=== PATIENT | male | born 1995 | race American Indian/Alaskan Native ===

== ENCOUNTER 2016-03-08 11:00 | Emergency (ER) | payer BC ==
[2016-03-08 11:06] VITALS: BP 110/64
[2016-03-08] MEDS ORDERED: FUL-GLO OP ONE (11:17)
[2016-03-08] MEDS ORDERED: BSS ONE (11:18)
[2016-03-08] MEDS ORDERED: TETCAINE OU ONE (11:25)
[2016-03-08] MEDS ORDERED: NORCO 5/325 PO ONE (11:26)
--- NOTE | 2016-03-08 11:46 | Emergency Department Report ---
ED Eye Problem HPI - General Chief complaint: Eye Problems Stated complaint: EYES BURNING Time Seen by Provider: 03/08/16 11:25 Source: patient Mode of arrival: Ambulatory Limitations: No Limitations - History of Present Illness Initial comments: 20-year-old male comes in with a complaint of both eyes are in severe pain and unable to open. Patient reports that last night he fell sleep with his contacts which he usually does not do woke up this morning and eyes are excruciating pain. She denies any nausea vomiting "just pain" - Related Data Previous Rx's Medication Instructions Recorded Last Taken Type Azithromycin [Zithromax Z-YFN] 250 mg PO DAILY #6 tab 01/01/15 Unknown Rx HYDROcodone/APAP 5-325 [[place] 1 each PO Q6HR PRN #20 tablet 01/01/15 Unknown Rx 5/325] Acetaminophen/Codeine [Tylenol #3] 1 tab PO Q6H PRN #20 tab 03/08/16 Unknown Rx Ofloxacin 0.3% [Floxin Otic] 2 drops OU QID #1 bottle 03/08/16 Unknown Rx Allergies Allergy/AdvReac Type Severity Reaction Status Date / Time No Known Allergies Allergy Unverified 12/31/14 21:00 ED Review of Systems ROS: Stated complaint: EYES BURNING Other details as noted in HPI ED Past Medical Hx - Past Medical History Previous Medical History?: No - Surgical History Past Surgical History?: No - Social History Smoking Status: Current Every Day Smoker Substance Use Type: Alcohol - Medications Home Medications: Home Medications Medication Instructions Recorded Confirmed Last Taken Type Azithromycin [Zithromax Z-YFN] 250 mg PO DAILY #6 tab 01/01/15 Unknown Rx HYDROcodone/APAP 5-325 [[place] 1 each PO Q6HR PRN #20 tablet 01/01/15 Unknown Rx 5/325] Acetaminophen/Codeine [Tylenol #3] 1 tab PO Q6H PRN #20 tab 03/08/16 Unknown Rx Ofloxacin 0.3% [Floxin Otic] 2 drops OU QID #1 bottle 03/08/16 Unknown Rx ED Physical Exam - General Limitations: No Limitations - Eye Eye exam: Present: scleral icterus, conjunctival injection Pupils: Present: other (bilateral cornea abrasion diagnosed through fluorecein exam ) - Expanded Eye Exam Expanded Sclera/Conjunctival: Injection: Bilateral ED Course Vital Signs 03/08/16 11:04 Temperature 98 F Pulse Rate 64 Blood Pressure 110/64 O2 Sat by Pulse 100 Oximetry ED Medical Decision Making - Radiology Data Been evaluated by this provider we would do a fluoroscopy stain exam. To rule out corneal abrasion we will give patient on [place] for pain and use tetracaine eyedrops to numb the eyes or better visual field. He is in verbalize understanding waiting for the tetracaine to come from pharmacy. Critical care attestation.: If time is entered above; I have spent that time in minutes in the direct care of this critically ill patient, excluding procedure time. ED Disposition Clinical Impression: Corneal abrasion due to contact lens Qualifiers: Laterality: bilateral Qualified Code(s): H18.823 - Corneal disorder due to contact lens, bilateral Disposition: DISCHARGED TO HOME OR SELFCARE Is pt being admited?: No Does the pt Need Aspirin: No Condition: Stable Instructions: Corneal Abrasion (ED) Additional Instructions: Use drops 4 times a day is very important for you to follow-up with the paperhanger apprentice further evaluation. Wear sunglasses to avoid sun sensitivity. Wash hands before and after touching her eyes do not put her contacts in until after he is seen the paperhanger apprentice. Prescriptions: Acetaminophen/Codeine [Tylenol #3] 1 tab PO Q6H PRN #20 tab PRN Reason: Pain Ofloxacin 0.3% [Floxin Otic] 2 drops OU QID #1 bottle Referrals: PRIMARY CAREMD [Primary Care Provider] - 3-5 Days NORTH LOPEZ MD [Staff Physician] - 3-5 Days NLIESH CONROY MD [Staff Physician] - 3-5 Days Forms: Work/School Release Form(ED)
[2016-03-08] MEDS ORDERED: TETRACAINE 0.5% OU ONE (12:00)
== END 2016-03-08 12:55 | disposition home or self-care (01) ==
LOC: ED 11:00
DX: H18.823 Corneal disorder due to contact lens, bilateral (principal); F17.200 Nicotine dependence, unspecified, uncomplicated
CPT/HCPCS: 99283